=== PATIENT | female | born 1985 | race Caucasian/White ===

== ENCOUNTER 2019-07-31 00:01 | Emergency (ER) | payer MEDICAID ==
[~2019-07-31] VITALS: Ht 162.6 cm; Wt 77.2 kg
[2019-07-31] MEDS ORDERED: clindamycin 150mg capsule PO ONE (01:10)
[2019-07-31] MEDS ORDERED: CLIN150C8 PO (01:10)
[2019-07-31 01:23] VITALS: BP 110/58
== END 2019-07-31 01:24 | disposition home or self-care (01) ==
LOC: ER 00:02
DX: L03.115 Cellulitis of right lower limb (principal); Z98.890 Other specified postprocedural states; Z79.899 Other long term (current) drug therapy
CPT/HCPCS: 73610; 93971; 99284